=== PATIENT | female | born 1955 | race Caucasian/White ===

== ENCOUNTER → 2021-05-10 | Outpatient (CLI) | payer OTHER ==
--- NOTE | 2021-05-10 13:13 | KCIC ---
EXAM: CT coronary artery calcium screening; radiologist over read. HISTORY: Coronary artery calcium screening. Hypertension. TECHNIQUE: Computed tomographic images of the chest were obtained without contrast. Multiplanar refor matting was performed. *One or more of the following individualized dose reduction techniques were utilized for this examina tion: 1. Automated exposure control. 2. Adjustment of the mA and/or kV according to patient size. 3. Use of iterative reconstruction technique. COMPARISON: None. FINDINGS: The heart is normal in size. The visualized aorta is normal in caliber. There is no lymphad enopathy. There is no infiltrate, pleural effusion, pneumothorax or suspicious pulmonary nodule. Ther e is no acute finding involving the upper abdomen or osseous structures. Coronary artery calcium score: 0. IMPRESSION: 1. Coronary artery calcium score of 0. No identifiable calcified atherosclerotic plaque. 2. No significant incidental thoracic finding. Electronically signed by: Daphne Huston MD (05/10/2021 1:11 PM) [id number]
== END ==
LOC: KCIC CT 12:25
PROVIDERS: ATTEND Physician Assistant Medical
DX: Z13.6 Encounter for screening for cardiovascular disorders (principal); I10 Essential (primary) hypertension; I25.10 Atherosclerotic heart disease of native coronary artery without angina pectoris
CPT/HCPCS: 75571